=== PATIENT | male | born 1975 | race Caucasian/White ===

== ENCOUNTER 2018-09-28 18:46 | Emergency (ER) | payer BC ==
[~2018-09-28] VITALS: Ht 170.2 cm; Wt 135.2 kg
[2018-09-28] MEDS ORDERED: LACTATED RINGERS 1,000 ML IV ONE ×2 (19:46→19:48)
[2018-09-28 20:06] LABS: BILIRUBIN,URINE NEGATIVE (NEGATIVE); CLARITY,URINE CLEAR; COLOR,URINE YELLOW; GLUCOSE, URINE (UA) NEGATIVE (NEGATIVE); KETONES,URINE NEGATIVE (NEGATIVE); LEUKOCYTE ESTERASE ,URINE NEGATIVE (NEGATIVE); NITRITE,URINE NEGATIVE (NEGATIVE); PH,URINE 5 (5-9); PROTEIN,URINE NEGATIVE (NEGATIVE); UROBILINOGEN,URINE NORMAL (NORMAL)
[2018-09-28 20:16] LABS: BASOPHILS % (AUTO) 0 % (0-10); EOSINOPHILS # (AUTO) 0.1 10^3/uL (0.0-0.3); EOSINOPHILS % (AUTO) 1 % (0-10); HEMATOCRIT 42 % (40-54); HEMOGLOBIN 13.9 G/DL (13.3-17.7); LYMPHOCYTES # (AUTO) 3.2 X 10^3 (1.0-4.0); LYMPHOCYTES % (AUTO) 36 % (12-44); MEAN CORPUSCULAR HEMOGLOBIN 30 PG (25-34); MEAN CORPUSCULAR HGB CONC 33 G/DL (32-36); MEAN CORPUSCULAR VOLUME 90 FL (80-99); MEAN PLATELET VOLUME 9.8 FL (7.4-10.4); MONOCYTES # (AUTO) 1.3 X 10^3 (0.0-1.0); MONOCYTES % (AUTO) 15 % (0-12); NEUTROPHILS # (AUTO) 4.3 X 10^3 (1.8-7.8); NEUTROPHILS % (AUTO) 48 % (42-75); PLATELET COUNT 294 10^3/uL (130-400); RED CELL DISTRIBUTION WIDTH 13.4 % (10.0-14.5); WHITE BLOOD COUNT 8.9 10^3/uL (4.3-11.0)
[2018-09-28 20:27] LABS: BACTERIA,URINE MODERATE /HPF
[2018-09-28 20:35] LABS: ALANINE AMINOTRANSFERASE 14 U/L (0-55); ALBUMIN 3.8 GM/DL (3.2-4.5); ALKALINE PHOSPHATASE 69 U/L (40-136); BILIRUBIN,TOTAL 0.4 MG/DL (0.1-1.0); BUN/CREATININE RATIO 13; CALCIUM 9.4 MG/DL (8.5-10.1); CARBON DIOXIDE 23 MMOL/L (21-32); CHLORIDE 108 MMOL/L (98-107); CREATININE SERUM 1.05 MG/DL (0.60-1.30); GFR ESTIMATED > 60; GLUCOSE 111 MG/DL (70-105); POTASSIUM 3.9 MMOL/L (3.6-5.0); SODIUM 142 MMOL/L (135-145)
--- NOTE | 2018-09-28 20:44 | Diagnostic Imaging Report ---
PROCEDURE: CT urinary tract, rule out kidney stone. TECHNIQUE: Multiple contiguous axial images were obtained through the abdomen and pelvis without the use of intravenous contrast. Auto Exposure Controls were utilized during the CT exam to meet ALARA standards for radiation dose reduction. INDICATION: Right posterior flank pain. COMPARISON: None. FINDINGS: The lung bases are clear. The gallbladder is contracted likely physiologic. There is no inflammation. The solid organs, vascular structures, and bowel are unremarkable. There is no free air or free fluid. The appendix is normal. There are no renal calculi. The urinary bladder and prostate are normal. There is no hernia. Osseous structures are age appropriate. IMPRESSION: Negative CT abdomen and pelvis. No renal calculi, hydronephrosis, or inflammatory process. Dictated by: Dictated on workstation # [id number]
[2018-09-28] MEDS ORDERED: KETO10TA PO (20:59)
[2018-09-28] MEDS ORDERED: NITR-65 PO (20:59)
--- NOTE | 2018-09-28 20:59 | ED Abdominal Pain ---
General Chief Complaint: Back Problems Stated Complaint: ABD PAIN,FLANK PAIN Nursing Triage Note: PATIENT STATES THAT HE IS HAVING LOWER BACK AND ABDOMINAL PAIN. PATIENT STATES THAT HE THINKS HE HAS KIDNEY STONES. DENIES ANY URINARY SYMPTOMS. Sepsis Screen: No Definite Risk Source of Information: Patient History of Present Illness Date Seen by Provider: Sep 28, 2018 Time Seen by Provider: 19:39 Initial Comments PT ARRIVES VIA POV FROM HOME C/O RLQ PAIN RADIATING TO RIGHT FLANK FOR THE LAST COUPLE OF WEEKS PAIN COMES AND GOES, NOTHING WORSENS OR IMPROVES PAIN NO RELIEF WITH IBUPROFEN 1000 MG THIS AM, AND "40 MG" OF ALEVE AT NOON NO NAUSEA/VOMITING/DIARRHEA NO PARESTHESIAS OR MOTOR DEFICITS NO FEVER HAS HAD URINARY FREQUENCY AND NOCTURIA FOR THE LAST 4-6 MONTHS, BUT NO PAIN ON URINATION, AND NO HEMATURIA SYMPTOMS NO DIFFERENT TODAY HAS NOT SOUGHT CARE UNTIL TODAY NO HISTORY OF SIMILAR PCP: [facility] COCHRAN Allergies and Home Medications Allergies Coded Allergies: No Known Drug Allergies (Unverified , 09/28/18) Home Medications Ketorolac Tromethamine 10 Mg Tablet, 10 MG PO Q6H Prescribed by: JOY SALDANA on 09/28/182058 Nitrofurantoin Monohyd/M-Cryst 100 Mg Capsule, 100 MG PO BID Prescribed by: JOY SALDANA on 09/28/182058 Patient Home Medication List Home Medication List Reviewed: Yes Review of Systems Review of Systems Constitutional: no symptoms reported Respiratory: No Symptoms Reported Cardiovascular: No Symptoms Reported Gastrointestinal: See HPI, Abdominal Pain; Denies Constipated, Denies Diarrhea, Denies Nausea, Denies Vomiting Genitourinary: See HPI, Frequency, Flank Pain; Denies Hematuria, Denies Pain; Urgency Musculoskeletal: see HPI, back pain Skin: no symptoms reported Psychiatric/Neurological: No Symptoms Reported Endocrine: No Symptoms Reported Hematologic/Lymphatic: No Symptoms Reported Past [id number] Hx Patient Social History Alcohol Use: Occasionally Uses Recreational Drug Use: No Smoking Status: Current Everyday Smoker ( 1 PPD) Type Used: Cigarettes 2nd Hand Smoke Exposure: Yes Recent Foreign Travel: No Contact w/Someone Who Travel: No Recent Infectious Disease Expo: No Physical Abuse: No Sexual Abuse: No Mistreated: No Fear: No Seasonal Allergies Seasonal Allergies: No Past Medical History Surgeries: Yes (PILONIDAL CYST REMOVED; RIGHT KNEE SCOPE) Orthopedic Respiratory: No Cardiac: No Neurological: No Genitourinary: No Gastrointestinal: Yes Gastroesophageal Reflux Musculoskeletal: Yes (RIGHT KNEE SCOPE) Endocrine: No HEENT: No Cancer: No Psychosocial: No Integumentary: Yes (PILONIDAL CYST REMOVED. ) Blood Disorders: No Physical Exam Vital Signs Vital Signs - First Documented 09/28/18 18:57 Pulse 59 Resp 20 B/P (MAP) 149/88 (108) Pulse Ox 98 Capillary Refill : Less Than 3 Seconds Height/Weight/BMI Height: 5'7.00" Weight: 298lbs. 0oz. 135.086691vk; BMI Method:Actual General Appearance: WD/WN, no apparent distress, obese, other (LAYING OUTSTRETCHED, SOMEWHAT FLAT/NON-CHALANT AFFECT. DOES NOT APPEAR TO BE IN ANY DISCOMFORT OR DISTRESS. WALKS UPRIGHT AND MOVES WITHOUT DIFFICULTY) Neck: normal inspection Respiratory: normal breath sounds, no respiratory distress, no accessory muscle use Cardiovascular: regular rate, rhythm, no murmur Gastrointestinal: normal bowel sounds, soft, no organomegaly, no pulsatile mass; No distended, No guarding, No rebound; tenderness (RLQ AND RIGHT FLANK, AND MILD SUPRAPUBIC TENDERNESS); No hernia, No mass Back: no vertebral tenderness, CVA tenderness (R) Neurologic/Psychiatric: worm sorter II-XII nml as tested, no motor/sensory deficits, alert, normal mood/affect, oriented x 3 Skin: normal color, warm/dry; No rash Progress/Results/Core Measures Results/Orders Lab Results Laboratory Tests Test 09/28/18 19:28 09/28/18 20:01 Range/Units Urine Color YELLOW Urine Clarity CLEAR Urine pH 5 5-9 Urine Specific [place] 1.020 1.016-1.022 Urine Protein NEGATIVE NEGATIVE Urine Glucose (UA) NEGATIVE NEGATIVE Urine Ketones NEGATIVE NEGATIVE Urine Nitrite NEGATIVE NEGATIVE Urine Bilirubin NEGATIVE NEGATIVE Urine Urobilinogen NORMAL NORMAL MG/DL Urine Leukocyte Esterase NEGATIVE NEGATIVE Urine RBC (Auto) 2+ H NEGATIVE Urine RBC NONE /HPF Urine WBC 5-10 H /HPF Urine Crystals NONE /LPF Urine Bacteria MODERATE H /HPF Urine Casts NONE /LPF Urine Mucus MODERATE H /LPF Urine Culture Indicated YES White Blood Count 8.9 4.3-11.0 10^3/uL Red Blood Count 4.67 4.35-5.85 10^6/uL Hemoglobin 13.9 13.3-17.7 G/DL Hematocrit 42 40-54 % Mean Corpuscular Volume 90 80-99 FL Mean Corpuscular Hemoglobin 30 25-34 PG Mean Corpuscular Hemoglobin Concent 33 32-36 G/DL Red Cell Distribution Width 13.4 10.0-14.5 % Platelet Count 294 130-400 10^3/uL Mean Platelet Volume 9.8 7.4-10.4 FL Neutrophils (%) (Auto) 48 42-75 % Lymphocytes (%) (Auto) 36 12-44 % Monocytes (%) (Auto) 15 H 0-12 % Eosinophils (%) (Auto) 1 0-10 % Basophils (%) (Auto) 0 0-10 % Neutrophils # (Auto) 4.3 1.8-7.8 X 10^3 Lymphocytes # (Auto) 3.2 1.0-4.0 X 10^3 Monocytes # (Auto) 1.3 H 0.0-1.0 X 10^3 Eosinophils # (Auto) 0.1 0.0-0.3 10^3/uL Basophils # (Auto) 0.0 0.0-0.1 10^3/uL Sodium Level 142 135-145 MMOL/L Potassium Level 3.9 3.6-5.0 MMOL/L Chloride Level 108 H 98-107 MMOL/L Carbon Dioxide Level 23 21-32 MMOL/L Anion Gap 11 5-14 MMOL/L Blood Urea Nitrogen 14 7-18 MG/DL Creatinine 1.05 0.60-1.30 MG/DL Estimat Glomerular Filtration Rate > 60 BUN/Creatinine Ratio 13 Glucose Level 111 H 70-105 MG/DL Calcium Level 9.4 8.5-10.1 MG/DL Corrected Calcium 9.6 8.5-10.1 MG/DL Total Bilirubin 0.4 0.1-1.0 MG/DL Aspartate Amino Transf (AST/SGOT) 11 5-34 U/L Alanine Aminotransferase (ALT/SGPT) 14 0-55 U/L Alkaline Phosphatase 69 40-136 U/L Total Protein 7.0 6.4-8.2 GM/DL Albumin 3.8 3.2-4.5 GM/DL My Orders Orders - JOY SALDANA DO Ed Iv/Invasive Line Start (09/28/18 19:48) Ct Abd/Pelvis Wo(Kidney Stone) (09/28/18 19:48) Acute Abd Series (09/28/18 19:48) Cbc With Automated Diff (09/28/18 19:48) Comprehensive Metabolic Panel (09/28/18 19:48) Ua Culture If Indicated (09/28/18 19:48) Ed Iv/Invasive Line Start (09/28/18 19:48) Lactated Ringers (Lr 1000 Ml Iv Solution (09/28/18 19:48) Lactated Ringers (Lr 1000 Ml Iv Solution (09/28/18 19:46) Urine Culture (09/28/18 19:28) Ceftriaxone For Iv Use (Rocephin For I (09/28/18 21:00) Ketorolac Injection (Toradol Injection) (09/28/18 21:00) Medications Given in ED Current Medications Medications Dose Ordered Sig/Hina Route Start Time Stop Time Status Last Admin Dose Admin Ceftriaxone Sodium 1000 mg/ Sterile Water 10 ml @ 200 mls/hr ONCE ONCE IV 09/28/18 21:00 09/28/18 21:02 DC 09/28/18 21:10 200 MLS/HR Ketorolac Tromethamine 30 mg ONCE ONCE IVP 09/28/18 21:00 09/28/18 21:01 DC 09/28/18 21:11 30 MG Lactated Ringer's 1,000 ml @ 0 mls/hr Q0M ONCE IV 09/28/18 19:48 09/28/18 19:52 DC 09/28/18 19:48 1,000 MLS/HR Vital Signs/I&O 09/28/18 09/28/18 18:57 21:55 Pulse 59 60 Resp 20 18 B/P (MAP) 149/88 (108) 147/93 (111) Pulse Ox 98 97 09/29/18 00:00 Intake Total 1000 ml Balance 1000 ml Blood Pressure Mean: 108 Progress Progress Note : Progress Note UNEVENTFUL ER STAY PAIN EASED AT DISMISSAL Diagnostic Imaging Comments CT ABDOMEN/PELVIS--NO ACUTE PROCESS, NO CALCULI, NO HERNIA--PER RADIOLOGIST REPORT AT 2054 ABDOMEN XRAYS--NO ACUTE PROCESS, PER RADIOLOGIST REPORT Reviewed: Reviewed by Me Departure Impression Primary Impression: UTI (urinary tract infection) Disposition: HOME, SELF-CARE Condition: Stable Departure-Patient Inst. Referrals: FEDERICO ROSSI DO (PCP) Primary Care Physician Patient Instructions: Urinary Tract Infection, Adult (DC) Add. Discharge Instructions: LOTS OF CLEAR LIQUIDS--NO COFFEE, POP OR TEA TYLENOL NEEDED FOR PAIN FOLLOW UP WITH DR. ROSSI NEXT WEEK FOR FURTHER CARE All discharge instructions reviewed with patient and/or family. Voiced understanding. Scripts Ketorolac Tromethamine (Ketorolac Tromethamine) 10 Mg Tablet 10 MG PO Q6H for Pain, #15 TAB Prov: JOY SALDANA DO 09/28/18 Nitrofurantoin Monohyd/M-Cryst (Macrobid 100 mg Capsule) 100 Mg Capsule 100 MG PO BID, #20 CAP Prov: JOY SALDANA DO 09/28/18 JOY SALDANA DO Sep 28, 2018 20:59
[2018-09-28] MEDS ORDERED: cefTRIAXone FOR IV USE 1,000 MG in WATER (STERILE) FOR INJECTION 10 ML IV ONE (21:00)
[2018-09-28] MEDS ORDERED: KETOROLAC 30 MG/ML VIAL IVP ONE (21:00)
--- NOTE | 2018-09-28 21:00 | Diagnostic Imaging Report ---
INDICATION: Abdominal and back pain COMPARISON: None FINDINGS: Acute abdominal series demonstrates chronic left-sided rib deformities. Otherwise, chest is normal. There is no free air. Bowel gas pattern is nondistended. There is no significant constipation. There is no free air. Osseous structures are age-appropriate. IMPRESSION: Negative acute abdominal series. Dictated by: Dictated on workstation # [id number]
[2018-09-28 21:55] VITALS: BP 147/93
== END 2018-09-28 21:57 | disposition home or self-care (01) ==
LOC: EDUNIT# 18:46 → ER 18:47
DX: N39.0 Urinary tract infection, site not specified (principal); K21.9 Gastro-esophageal reflux disease without esophagitis; F17.210 Nicotine dependence, cigarettes, uncomplicated
CPT/HCPCS: 36415; 74022; 74176; 80053; 81000; 85025; 87088

== ENCOUNTER → 2019-01-19 | Outpatient (CLI) | payer BC ==
[~2019-01-19] MED LIST: HOLD METFORMIN - RECEIVED CONTRAST 20 ML VIAL IV SCH; IOHEXOL 350 MG/ML 100 ML (OMNIPAQUE 350) VIAL IV ONE; KETO10TA PO; NITR-65 PO; NS 100 ML (IVPB) BAG IV ONE
--- NOTE | 2019-01-19 09:20 | Diagnostic Imaging Report ---
EXAMINATION: CT Abdomen and Pelvis with intravenous contrast. TECHNIQUE: Multiple contiguous axial images were obtained through the abdomen and pelvis after the uneventful administration of intravenous contrast. All CT scans use one or more of the following dose optimizing techniques: automated exposure control, MA and/or KvP adjustment based on a patient size and exam type, or iterative reconstruction. HISTORY: PROSTATIS CPP COMPARISON: 09/28/2018. FINDINGS: Limited views of the lower thorax are unremarkable. The liver is normal without focal lesion. There is no biliary ductal dilation. Gallbladder is normal. Pancreas is normal. Spleen is normal. Adrenal glands are normal. The kidneys are normal. There is no hydronephrosis. Urinary bladder is normal. There are no dilated loops of large or small bowel. No obstruction or inflammation. No free fluid or air. No abdominal or pelvic lymphadenopathy. Aorta is normal in caliber without aneurysm. There are no suspicious osseous lesions. IMPRESSION: 1. No acute abnormality in the abdomen or pelvis. Dictated by: Dictated on workstation # [id number]
== END ==
LOC: RAD 08:02
PROVIDERS: ATTEND Urology
DX: N41.9 Inflammatory disease of prostate, unspecified (principal); G89.29 Other chronic pain; R10.2 Pelvic and perineal pain
CPT/HCPCS: 74177

== ENCOUNTER → 2021-03-30 | Outpatient (CLI) | payer BC ==
[~2021-03-30] MED LIST changes: -HOLD METFORMIN - RECEIVED CONTRAST 20 ML VIAL IV SCH; -IOHEXOL 350 MG/ML 100 ML (OMNIPAQUE 350) VIAL IV ONE; -NS 100 ML (IVPB) BAG IV ONE
--- NOTE | 2021-03-30 16:27 | Diagnostic Imaging Report ---
EXAMINATION: Chest 2 view. HISTORY: Rib injury. COMPARISON: None available. FINDINGS: There is a left lateral rib deformity. No pleural effusion or pneumothorax. Heart size is normal. No edema or pneumonia. IMPRESSION: Left lateral rib deformity which may represent acute or chronic rib fractures. Dictated by: Dictated on workstation # [id number]
== END ==
LOC: RAD FS 15:31
PROVIDERS: ATTEND Emergency Medicine
DX: S23.41XA Sprain of ribs, initial encounter (principal)
CPT/HCPCS: 71046